=== PATIENT | female | born 1990 | race Caucasian/White ===

== ENCOUNTER → 2021-01-02 | Outpatient (CLI) | payer OTHER ==
--- NOTE | 2021-01-03 08:05 | MM ---
Reason for exam: clinical finding. Baseline mammogram. History: Took hormonal contraceptives for 5 years. Physical Findings: Nurse did not find any significant physical abnormalities on exam. [facility] Mammo w CAD CHRISTA Bilateral CC and MLO view(s) were taken. The breast tissue is heterogeneously dense. This may lower the sensitivity of mammography. Dense tissues upper outer quadrants. Patient palpated area 8 o'clock anterior left breast. These results were verbally communicated with the patient and result sheet given to the patient on 01/02/21. ASSESSMENT: Incomplete: need additional imaging evaluation, BI-RAD 0 RECOMMENDATION: Ultrasound of the left breast. (medial)
--- NOTE | 2021-01-03 08:07 | USB ---
Reason for exam: additional evaluation requested from abnormal screening. History: Took hormonal contraceptives for 5 years. US Breast Limited LT Left limited breast ultrasound including focal area of concern, retroareolar and axilla demonstrates a 0.8 x 1.1 x 0.7cm oval, benign lymph node at the axilla. These results were verbally communicated with the patient and result sheet given to the patient on 01/02/21. ASSESSMENT: Negative, BI-RAD 1 RECOMMENDATION: Routine screening mammogram of both breasts at age 39. Patient should continue monthly self breast exams. A negative report should not preclude additional follow up of suspicious palpable abnormalities. Manage on a clinical basis with regard to any suspicious palpable abnormalities.
== END | disposition home or self-care (01) ==
LOC: RADMAMWWP 12:43
PROVIDERS: ATTEND Obstetrics & Gynecology
DX: R92.2 Inconclusive mammogram (principal); Z79.3 Long term (current) use of hormonal contraceptives
CPT/HCPCS: 77066